=== PATIENT | male | born 1955 | race Caucasian/White ===

== ENCOUNTER 2017-04-20 04:02 | Emergency (ER) | payer MEDICAID ==
[~2017-04-20] VITALS: Ht 180.3 cm; Wt 111.1 kg
[2017-04-20 09:07] VITALS: BP 151/61
[2017-04-20] MEDS ORDERED: KETOROLAC TROMETH 60MG/2ML VIAL IM ONE (09:15)
== END 2017-04-20 10:00 | disposition home or self-care (01) ==
LOC: EDBD 04:02 → ER 04:09
DX: M79.1 Myalgia (principal); M54.5 Low back pain
CPT/HCPCS: 96372; 99283; J1885